=== PATIENT | male | born 1945 | race Caucasian/White ===

== ENCOUNTER 2016-11-23 07:51 | Day surgery (SDC) | payer MEDICARE, OTHER ==
[~2016-11-23 07:51] MED LIST: Lactated Ringers 1,000 ML IV SCH; Lidocaine 1% 4 ML ONE; Lidocaine 1%/Sod Bicarbonate in NS 8.4% 1 ML Syringe PRN; Propofol 200 MG/20 ML SDV ONE; Sodium Chloride 0.9% 10 ML Syringe FLUSH PRN; fentaNYL 100 MCG/2 ML SDV ONE
--- NOTE | 2016-11-23 08:18 | PCM.PREANE ---
Preanesthetic Assessment - Procedure Proposed Procedure: colonoscopy - Anesthesia/Transfusion/Family Hx Anesthesia History: Prior Anesthesia Without Reaction Family History of Anesthesia Reaction: No Transfusion History: No Prior Transfusion(s) - Review of Systems General: No Symptoms Pulmonary: No Symptoms Cardiovascular: No Symptoms Gastrointestinal: No Symptoms Neurological: No Symptoms Other: Reports: Easy Bruising, Diabetes - Physical Assessment NPO Status Date: 11/22/16 NPO Status Time: 19:30 (sip of water with pills) Pulse: 92 O2 Sat by Pulse Oximetry: 95 Respiratory Rate: 16 Blood Pressure: 138/71 Temperature: 97.8 F Height: 5 ft 7 in Weight: 99.065 kg ASA Class: 3 Mental Status: Alert & Oriented x3 Airway Class: Mallampati = 2 Dentition: Reports: Normal Dentition Thyro-Mental Finger Breadths: 3 Mouth Opening Finger Breadths: 3 ROM/Head Extension: Full Lungs: Clear to Auscultation, Normal Respiratory Effort Cardiovascular: Regular Rate, Regular Rhythm - Lab Values: Laboratory Last Values POC Glucose 130 mg/dL (83-110) H 11/23/16 08:08 - Allergies Allergies/Adverse Reactions: Allergies Allergy/AdvReac Type Severity Reaction Status Date / Time No Known Allergies Allergy Verified 11/22/16 13:28 - Blood Blood Available: No - Anesthesia Plan Beta Cristhian: Metoprolol Med Last Dose Date: 11/23/16 Med Last Dose Time: 06:00 - Acknowledgements Anesthesia Type Planned: MAC Pt an Appropriate Candidate for the Planned Anesthesia: Yes Alternatives and Risks of Anesthesia Discussed w Pt/Guardian: Yes Pt/Guardian Understands and Agrees with Anesthesia Plan: Yes PreAnesthesia Questionnaire HEENT History: Reports: Hard of Hearing, Impaired Vision Cardiovascular History: Reports: Afib, High Cholesterol, Hypertension, Other ( See Below) Other Cardiovascular History: inappropriate sinus tachycardia Respiratory History: Reports: Sleep Apnea, Other (See Below) Other Respiratory History: uses cpap machine Gastrointestinal History: Reports: Colon Polyp Genitourinary History: Reports: None [employer] History: Reports: None Musculoskeletal History: Reports: Other (See Below) Other Musculoskeletal History: left knee osteoarthritis Neurological History: Reports: None Psychiatric History: Reports: None Endocrine/Metabolic History: Reports: Diabetes, Type II Hematologic History: Reports: Anticoagulation Therapy Other Hematologic History: currently prescribed eliquis for afib Immunologic History: Reports: None Oncologic (Cancer) History: Reports: None Dermatologic History: Reports: Other (See Below) Other Dermatologic History: nevi - Infectious Disease History Infectious Disease History: Reports: Chicken Pox, Measles, Mumps - Past Surgical History HEENT Surgical History: Reports: Adenoidectomy, Tonsillectomy Cardiovascular Surgical History: Reports: None Respiratory Surgical History: Reports: None GI Surgical History: Reports: Colonoscopy Female Surgical History: Reports: None Male Surgical History: Reports: None Neurological Surgical History: Reports: None Musculoskeletal Surgical History: Reports: Knee Replacement Oncologic Surgical History: Reports: None - SUBSTANCE USE Smoking Status *Q: Former Smoker Tobacco Use Within Last Twelve Months: No Second Hand Smoke Exposure: No Days Per Week of Alcohol Use: 0 Recreational Drug Use History: No - HOME MEDS Home Medications: Home Meds Apixaban [Eliquis] 5 mg PO BID 08/10/15 [History] Indapamide 5 mg PO BID 08/10/15 [History] Lisinopril [Prinivil] 20 mg PO DAILY 08/10/15 [History] Potassium Chloride 10 meq PO DAILY 08/10/15 [History] atorvaSTATin [Lipitor] 20 mg PO DAILY 08/10/15 [History] Diltiazem [Cardizem CD] 240 mg PO DAILY 09/17/15 [History] Metoprolol Succinate 25 mg PO DAILY 09/17/15 [History] metFORMIN HCl [Metformin HCl] 500 mg PO BID 11/22/16 [History] - CURRENT (IN HOUSE) MEDS Current Meds: Current Medications Lactated Ringer's (Ringers, Lactated) 1,000 mls @ 125 mls/hr IV ASDIRECTED SHAYLEE Stop: 11/23/16 23:00 Lidocaine/Sodium Bicarbonate (Buffered Lidocaine 1% In Ns 8.4%) 0.25 ml .XX ONETIME PRN PRN Reason: Prior to IV Start Stop: 11/23/16 18:00 Sodium Chloride (Saline Flush) 10 ml FLUSH ASDIRECTED PRN PRN Reason: Keep Vein Open Stop: 11/23/16 18:00 Discontinued Medications Fentanyl (Sublimaze) Confirm Administered Dose 100 mcg .ROUTE .STK-MED ONE Stop: 11/23/16 07:29 Lidocaine HCl (Xylocaine-Mpf 1%) Confirm Administered Dose 4 mls @ as directed .ROUTE .STK-MED ONE Stop: 11/23/16 07:29 Propofol (Diprivan 20 Ml) Confirm Administered Dose 200 mg .ROUTE .[facility] ONE Stop: 11/23/16 07:29
--- NOTE | 2016-11-23 09:25 | PCM.OPNOTE ---
- General Post-Op/Procedure Note Date of Surgery/Procedure: 11/23/16 Operative Procedure(s): colonoscopy to cecum Pre Op Diagnosis: hx of cecal polyp Post-Op Diagnosis: Same Anesthesia Technique: MAC Primary Surgeon: Michael Gaines EBL in mLs: 0 Complications: None Condition: Good
--- NOTE | 2016-11-23 09:28 | PCM48HPAN ---
Post Anesthesia Note - EVALUATION WITHIN 48HRS OF ANESTHETIC Vital Signs in Normal Range: Yes Patient Participated in Evaluation: Yes Respiratory Function Stable: Yes Airway Patent: Yes Cardiovascular Function Stable: Yes Hydration Status Stable: Yes Pain Control Satisfactory: Yes Nausea and Vomiting Control Satisfactory: Yes Mental Status Recovered: Yes
[2016-11-23 09:32] VITALS: BP 98/42
--- NOTE | 2016-11-23 11:01 | OR ---
DATE OF OPERATION: 11/23/2016 SURGEON: Michael Gaines MD PREOPERATIVE DIAGNOSIS: History of cecal polyp. POSTOPERATIVE DIAGNOSIS: History of cecal polyp. OPERATION PERFORMED: Colonoscopy to cecum. FINDINGS: Moderate to moderately severe diverticulosis in the sigmoid colon. There were no angiodysplasias, neoplasias, large tumor masses, ulcerations, or notable hemorrhoids. Recommendation is, the patient can be dropped from surveillance colonoscopy. ANESTHESIA: Procedure done under IV sedation. DESCRIPTION OF PROCEDURE: The patient was taken to the operating room, placed in the supine position, connected to monitoring equipment, given IV sedation, and placed in the left lateral position. Perianal area was unremarkable. Rectal exam showed good sphincter tone. A video Olympus colonoscope was then introduced into the rectum and threaded up without problem to the cecum, where the appendicular orifice and ileocecal valve were noted. The ileum was cannulated for a very short distance and was normal. The prep was excellent. [place] cleansing score grade A throughout the colon. The scope was slowly withdrawn showing the cecum, ascending colon, transverse colon, descending colon, sigmoid colon, and rectum. Retroflexed view was not done. The patient tolerated the procedure, was sent to recovery room in a stable condition, will be followed up as needed in the clinic. ESTIMATED BLOOD LOSS: MMODAL /[id number]
== END 2016-11-23 09:57 | disposition home or self-care (01) ==
LOC: JD.SDS 07:51
PROVIDERS: ATTEND Surgery
PROC: 0DJD8ZZ Inspection of Lower Intestinal Tract, Via Natural or Artificial Opening Endoscopic (ICD-10-PCS; principal; 2016-11-23)
DX: Z12.11 Encounter for screening for malignant neoplasm of colon (principal); K57.30 Diverticulosis of large intestine without perforation or abscess without bleeding; E11.9 Type 2 diabetes mellitus without complications; E78.5 Hyperlipidemia, unspecified; I10 Essential (primary) hypertension; I48.0 Paroxysmal atrial fibrillation; M17.12 Unilateral primary osteoarthritis, left knee; G47.33 Obstructive sleep apnea (adult) (pediatric); Z99.89 Dependence on other enabling machines and devices; Z79.01 Long term (current) use of anticoagulants; Z79.84 Long term (current) use of oral hypoglycemic drugs; Z79.899 Other long term (current) drug therapy; Z90.89 Acquired absence of other organs; Z96.652 Presence of left artificial knee joint; Z98.890 Other specified postprocedural states; Z87.891 Personal history of nicotine dependence; Z86.010 Personal history of colon polyps; Z80.0 Family history of malignant neoplasm of digestive organs; Z82.3 Family history of stroke; Z82.49 Family history of ischemic heart disease and other diseases of the circulatory system; Z83.3 Family history of diabetes mellitus
CPT/HCPCS: 82962; G0105; J3010; J7120; 00810; J2704